=== PATIENT | male | born 1975 | race Two or more races ===

== ENCOUNTER 2024-03-26 18:58 | Emergency (ER) | payer SELFPAY ==
[~2024-03-26] VITALS: Ht 162.6 cm; Wt 81.6 kg
[2024-03-26] MEDS: IV NORMAL SALINE 1000 ML BAG IV ONE (19:45)
[2024-03-26] MEDS: LIDOCAINE 2% (GLYDO= UROJET) 10 ML JELLY MM ONE (20:00)
[2024-03-26 20:03] LABS: BASOPHILS # (AUTO) 0.1 K/UL (0.0-0.2); BASOPHILS % (AUTO) 0.4 % (0.0-2.0); HEMATOCRIT 49.8 % (36.7-47.1); HEMOGLOBIN 17.2 g/dL (12.5-16.3); MEAN CORPUSCULAR HEMOGLOBIN 30.4 uug (23.8-33.4); MEAN CORPUSCULAR HGB CONC 35 g/dL (32.5-36.3); MEAN CORPUSCULAR VOLUME 88.2 fL (73.0-96.2); MONOCYTES # (AUTO) 0.6 K/uL (0.1-1.30); MONOCYTES % (AUTO) 3.5 % (0.0-11.0); NEUTROPHILS # (AUTO) 15.3 K/uL (1.8-8.9); NEUTROPHILS % (AUTO) 90.1 % (38.5-71.5); PLATELET COUNT (AUTO) 230 K/uL (152-348); RED BLOOD CELL COUNT(AUTO) 5.65 MIL/uL (4.06-5.63); RED CELL DISTRIBUTION WIDTH 13.5 % (12.1-16.2)
[2024-03-26 20:22] LABS: CALCIUM 7.6 mg/dL (8.5-10.1); CARBON DIOXIDE 20 mmol/L (21-32); CHLORIDE 99 mmol/L (98-107); CREATININE 0.9 mg/dL (0.6-1.3); GLUCOSE 164 mg/dL (74-106); POTASSIUM 3.9 mmol/L (3.5-5.1); SODIUM SERUM 138 mmol/L (136-145); UREA NITROGEN, BLOOD 10 mg/dL (7-18)
[2024-03-26 20:22] LABS: *BILIRUBIN,URIN NEGATIVE (NEGATIVE); *BLOOD, URINE 3+ (NEGATIVE); *CLARITY,URINE CLEAR (CLEAR); *COLOR,URINE YELLOW (YELLOW); *KETONES,URINE NEGATIVE (NEGATIVE); *PROTEIN,URINE NEGATIVE (NEGATIVE); *UROBILINOGEN,URINE 0.2 E.U./dl (NORMAL); LEUKOCYTE ESTERASE ,URINE NEGATIVE (NEGATIVE); NITRITE, URINE NEGATIVE (NEGATIVE); UGLUCOSE NEGATIVE (NEGATIVE)
[2024-03-26 20:31] LABS: DIFFERENTIAL COMMENT 1
[2024-03-26 20:32] LABS: ALANINE AMINOTRANSFERASE 119 U/L (16-63); ALBUMIN 3.9 g/dL (3.4-5.0); ALKALINE PHOSPHATASE 108 U/L (50-136); ASPARTATE AMINOTRANSFERASE 127 U/L (15-37); BILIRUBIN,DIRECT 0.1 mg/dL (0.0-0.2); BILIRUBIN,TOTAL 0.4 mg/dL (0.2-1.0); TOTAL PROTEIN, SERUM 8.4 g/dL (6.4-8.2)
[2024-03-26 20:33] LABS: RBC,URINE 0-3 /HPF (0-3); SQUAMOUS EPITHELIAL CELL,UR FEW /HPF (NONE SEEN); WBC,URINE NONE SEEN /HPF (0-3)
[2024-03-26 20:34] LABS: ACETAMINOPHEN < 2.0 ug/mL (10-30); THYROID STIMULATING HORMONE 1.252 mIU/mL (0.358-3.740)
[2024-03-26 20:37] LABS: AMMONIA 54 umol/L (11-32); ETHANOL 473 MG/DL (0-10)
[2024-03-26 20:40] LABS: *AMPHETAMINE, URINE NEGATIVE (NEGATIVE); *BARBITURATE, URINE NEGATIVE (NEGATIVE); *BENZODIAZEPINE, URINE NEGATIVE (NEGATIVE); *CANNABINOID, URINE NEGATIVE (NEGATIVE); *COCCAINE, URINE NEGATIVE (NEGATIVE); *OPIATE, URINE NEGATIVE (NEGATIVE); *PHENCYCLIDINE SCREEN,URINE NEGATIVE (NEGATIVE); FENTANYL, URINE NEGATIVE (NEGATIVE)
[2024-03-26] MEDS ORDERED: LIDOCAINE 2% (GLYDO= UROJET) 10 ML JELLY MM ONE (20:51)
[2024-03-27] MEDS: IV NORMAL SALINE 1000 ML BAG IV ONE ×2 (01:00→08:57)
[2024-03-27] MEDS: LORAZEPAM 2 MG/1 ML VIAL IV ONE (02:15)
[2024-03-27] MEDS ORDERED: LORAZEPAM 2 MG/1 ML VIAL ONE (02:22)
[2024-03-27] MEDS ORDERED: LACTULOSE 20 G/30 ML LIQUID UDC ONE (02:22)
[2024-03-27] MEDS: LACTULOSE 20 G/30 ML LIQUID UDC PO ONE (02:36)
[2024-03-27] MEDS ORDERED: LACT10SO58 PO (05:33)
[2024-03-27 11:05] VITALS: BP 126/78; O2SAT 97
== END 2024-03-27 11:06 | disposition home or self-care (01) ==
LOC: ER 18:58
DX: F10.129 Alcohol abuse with intoxication, unspecified (principal); E72.20 Disorder of urea cycle metabolism, unspecified; E87.20 Acidosis, unspecified; M54.2 Cervicalgia; R00.0 Tachycardia, unspecified; R07.9 Chest pain, unspecified; Y90.8 Blood alcohol level of 240 mg/100 ml or more
CPT/HCPCS: 80076; 80048; 81001; 82140; 84443; 85025; 84484 ×2; 71045; 70450; 72125; 51702; 99285; 96361 ×2; 80299; 80320; 80307; 96374; J7040 ×2; J2060; A4606; A4663; G0480